=== PATIENT | male | born 1960 | race Caucasian/White ===

== ENCOUNTER → 2016-03-23 | Outpatient (CLI) | payer OTHER ==
--- NOTE | 2016-03-23 14:45 | XR ---
EXAMINATION TYPE: XR chest 2V DATE OF EXAM: 03/23/2016 2:39 PM COMPARISON: 08/23/2015 HISTORY: Shortness of breath TECHNIQUE: Frontal and lateral views of the chest are obtained. FINDINGS: Scattered senescent parenchymal changes noted. Hyperinflation compatible with COPD. No evidence for infiltrate. No evidence for atelectasis. Heart size is stable. Mediastinal structures are stable and grossly unremarkable. No evidence for hilar prominence. Degenerative changes dorsal spine. IMPRESSION: 1. No evidence for acute pulmonary disease.
[2016-03-23 16:12] LABS: EKG EKG PERFORMED
[2016-03-23 16:32] LABS: Appearance,Urine Clear (Clear); Bilirubin,Urine Negative (Negative); Glucose,Urine (UA) Negative (Negative); Ketones,Urine Negative (Negative); Leukocyte Esterase,Urine Negative (Negative); Nitrite,Urine Negative (Negative); Protein,Urine Negative (Negative); Specific Gravity,Urine 1.011 (1.001-1.035); UA Billing (MACRO vs. MICRO) CHEM; Urobilinogen,Urine <2.0 mg/dL (<2.0)
[2016-03-23 16:33] LABS: Basophils % (A) 1 %; CH 30.4; CHCM 34.2; Eosinophils # (A) 0.4 k/uL (0-0.7); Eosinophils % (A) 6 %; HCT 43.2 % (39.0-53.0); Luc # (Auto) 0.07; Luc % (Auto) 1; Lymphocytes # (A) 1.2 k/uL (1.0-4.8); Lymphocytes % (A) 20 %; MCHC 32.4 g/dL (31.0-37.0); MCV 89.4 fL (80.0-100.0); Mean Platelet Volume 8.4; Monocytes # (A) 0.4 k/uL (0-1.0); Monocytes % (A) 7 %; Neutrophils # (A) 3.9 k/uL (1.3-7.7); Neutrophils % (A) 65 %; RBC 4.83 m/uL (4.30-5.90); RDW 13.9 % (11.5-15.5); WBC 6.1 k/uL (3.8-10.6); WBC (Perox) 6.22
[2016-03-23 17:03] LABS: Anion Gap 11 mmol/L; Blood Urea Nitrogen 12 mg/dL (9-20); Calcium 9.6 mg/dL (8.4-10.2); Carbon Dioxide 30 mmol/L (22-30); Chloride 99 mmol/L (98-107); Glucose 93 mg/dL (74-99); Non-African American GFR(MDRD) >60 (>60 ml/min/1.73 sqM); Potassium 3.8 mmol/L (3.5-5.1); Sodium 140 mmol/L (137-145)
[2016-03-23 17:08] LABS: Partial Thromboplastin Time 26.4 sec (22.0-30.0)
== END | disposition home or self-care (01) ==
LOC: RADXRMAIN 14:27
PROVIDERS: ATTEND Orthopaedic Surgery Orthopaedic Surgery of the Spine
DX: Z01.818 Encounter for other preprocedural examination (principal); Z01.812 Encounter for preprocedural laboratory examination; Z01.810 Encounter for preprocedural cardiovascular examination
CPT/HCPCS: 36415; 71020; 80048; 81003; 85025; 85610; 85730; 93005

== ENCOUNTER 2016-03-29 06:03 | Inpatient (IN) | payer OTHER ==
[2016-03-23 16:06] LABS: EKG EKG PERFORMED
[2016-03-27 10:36] VITALS: BMI 32.5
[~2016-03-29 06:03] MED LIST: HYDROmorphone 1 MG/ML 1 ML SYRINGE IVP PRN; LACTATED RINGERS 1,000 ML IV SCH; LIDOCAINE 1% 20 ML VIAL (10MG/ML) FOR IV START INTRADERMA PRN; ONDANSETRON 4 MG/2 ML VIAL IVP ONE; Pre Op ABX Message 1 EACH MISC MISCELLANE ONE; SCOPOLAMINE 1.5MG/72HR PATCH TRANSDERM ONE
[2016-03-29] MEDS ORDERED: LIDOCAINE 1% 20 ML VIAL (10MG/ML) FOR IV START INTRADERMA ONE (06:33)
[2016-03-29] MEDS ORDERED: SUCCINYLCHOLINE CHLORIDE 100 MG/5 ML SYR IV ONE (07:27)
[2016-03-29] MEDS ORDERED: LIDOCAINE 1% INJ 10MG/ML (20 ML MDV) ONE (07:27)
[2016-03-29] MEDS ORDERED: ceFAZolin 1,000 MG VIAL ONE (07:27)
[2016-03-29] MEDS ORDERED: PROPOFOL 10 MG/ML 20 ML VIAL IV ONE (07:27)
[2016-03-29] MEDS ORDERED: MIDAZOLAM 2 MG/2 ML VIAL ONE (07:27)
[2016-03-29] MEDS ORDERED: ePHEDrine 50 MG/ML 1 ML AMP ONE (07:27)
[2016-03-29] MEDS ORDERED: ROCURONIUM BROMIDE 10 MG/ML 10 ML VIAL IV ONE (07:27)
[2016-03-29] MEDS ORDERED: SODIUM CHLORIDE 0.9% 100 ML BAG ONE (07:27)
[2016-03-29] MEDS ORDERED: fentaNYL (PF) 50 MCG/ML 2 ML AMP ONE (07:27)
[2016-03-29] MEDS ORDERED: HYDROmorphone (PF) 1 MG/ML ONE (07:27)
[2016-03-29] MEDS ORDERED: DEXAMETHASONE SOD PHOS (MDV) 100 MG/10 ML VIAL ONE (07:27)
[2016-03-29] MEDS: ceFAZolin 2 GM in SODIUM CHLORIDE 0.9% 100 ML IVPB ONE ×2 (07:43→11:00)
[2016-03-29] MEDS: ceFAZolin 1,000 MG in SODIUM CHLORIDE 0.9% IRRIGATIO 1,000 ML IRRIGATION ONE ×3 (07:45→11:01)
[2016-03-29] MEDS ORDERED: GELATIN SPONGE,ABSORB (LARGE) 1 EACH SPONGE TOPICAL ONE (08:01)
[2016-03-29] MEDS ORDERED: THROMBIN (BOVINE) 5,000 UNIT VIAL TOPICAL ONE (08:02)
[2016-03-29] MEDS ORDERED: LIDOCAINE 0.5%-EPI 1:200,000 50 ML VIAL SQ ONE (08:02)
[2016-03-29] MEDS ORDERED: ONDANSETRON 4 MG/2 ML VIAL IVP PRN (09:23)
[2016-03-29] MEDS ORDERED: HYDROmorphone 1 MG/ML 1 ML SYRINGE IVP PRN ×2 (09:23)
[2016-03-29] MEDS ORDERED: HYDROcodone/APAP 5-325MG 1 EACH TAB PO PRN (09:23)
[2016-03-29] MEDS ORDERED: BENZOCAINE/MENTHOL LOZENG 1 EACH LOZENGE MUCOUS MEM PRN (09:23)
[2016-03-29] MEDS ORDERED: DIAZEPAM 5 MG TAB PO PRN (09:23)
[2016-03-29] MEDS ORDERED: ALPRAZolam 0.25 MG TAB PO PRN (09:25)
[2016-03-29] MEDS ORDERED: PREGABALIN 100 MG CAP PO PRN (09:25)
[2016-03-29] MEDS ORDERED: SODIUM CHLORIDE 0.9% 1,000 ML IV SCH (09:30)
--- NOTE | 2016-03-29 09:30 | P.OP ---
Date of Procedure: 03/29/16 Preoperative Diagnosis: Herniated nucleus pulposis C6 7 Degenerative disc disease C6 7 Cervical stenosis C6 7 Neck pain with upper extremity radiculopathy Postoperative Diagnosis: Same Anesthesia: GETA Pathology: none sent Condition: stable Disposition: PACU Description of Procedure: BRIEF OPERATIVE NOTE Preoperative Diagnosis: Herniated nucleus pulposis C6 7, cervical stenosis C6 7 , degenerative disc disease C6 7, neck pain with upper extremity radiculopathy s Postoperative Diagnosis: Same Procedure: Anterior cervical decompression and fusion C6 7 Placement of interbody graft C6 7 Application of anterior cervical plate C6 7 Surgeon: Dr. Ling Rv Mechanic: Dorian Gibbs is present throughout the entire the case persistence during positioning, dissection, exposure, visualization, and all crucial elements of the case as well as closure. Anesthesia: General anesthesia Estimated blood loss: Approximately 50 mL Complications: None apparent Components implanted: K2M [place] anterior cervical plate system with screws and allograft interbody bone graft Disposition: To recovery room in good stable condition. OPERATIVE INDICATIONS The patient has had long-standing issues in their neck and upper extremities. He has been having worsening his symptoms and was found have significant changes at his cervical spine with herniated nucleus pulposis stenosis and degenerative change all of which correlated well with his symptoms. The patient has been through conservative treatment. He is not having any prolonged benefit despite aggressive conservative treatment. We discussed various treatment options including surgery, and the patient wishes to proceed with surgery We discussed the risk, patient's alternatives and benefits of surgery including but not limited to, risk of bleeding risk of infection, risk of need for further surgery, risk of decreased, loss of motion, muscle function, malunion nonunion, hardware failure, nerve damage, paralysis, heart attack, and . OPERATIVE SUMMARY After discussing all the risks, patient alternatives and benefits at length, the patient elected to proceed with surgical intervention, signed informed consent, and presented for their procedure. The patient was seen and examined in the preoperative holding area and the surgical site was marked. The patient was given antibiotics and brought to the operating room. The patient was positioned on the operating room table in a supine position being careful to pad any bony prominences and pressure points. The patient was sedated and intubated by anesthesia in standard fashion. Once the airway and C- spine were stabilized the patient's arms were padded and tucked at her side, with her shoulders gently taped. The head was placed in a donut pad with the neck in good neutral alignment and position. We were careful to maintain the patient's cervical spine and good neutral alignment and position throughout. The patient was prepped and draped in a normal standard fashion. An appropriate timeout and keystone protocol performed. We were able to proceed with the surgery. The local wound area was infiltrated with local anesthetic. An incision was made transversely approximately 2-1/2 cm over the appropriate levels at C6 7 at C6 7. Dissection was taken down subcutaneously to the level of the platysma which was split in line with its fibers. Dissection was taken with a carotid approach, with the trachea and esophagus medial and the carotid sheath laterally. We dissected down to the anterior surface of the vertebral bodies. Intraoperative x-ray was taken which showed a marker at the appropriate level. With the appropriate level positively confirmed, we were able to proceed with discectomy at the appropriate levels at C6 7. All of the operative levels were exposed appropriately. The patient had all their twitches back, and there was no evidence of recurrent laryngeal issue. The wound was copiously irrigated and suctioned dry as had been done periodically throughout the case. At the appropriate level there is severe degeneration and near complete loss of disc height., I established an annulotomy with an 11 blade scalpel. A discectomy was performed with a combination of pituitary rongeurs, curettes, a high-speed bur, and Kerrison rongeurs. The posterior longitudinal ligament was taken down as were any posterior osteophytes. This gave good central and bilateral foraminal decompression. There is no evidence of any dural tear or leak. The endplates were prepared with a high-speed bur. With the endplates in good parallel position, I was able to size for the appropriate size interbody graft. The wound was irrigated and suctioned dry the graft was prepared and malleted into position. It had good alignment and position with the anterior surface flush with the anterior surface of the vertebral bodies. With the grafts intact, I was able to measure and contour and appropriate sized plate. The plate was positioned at the midline over the appropriate levels of C6 7. Screw holes were established with a hand drill and drill guide. Screws were placed in good alignment and position with excellent bony purchase. They were seated under the locking device. The construct was checked and found to be stable. Intraoperative x-ray was taken which showed good alignment and position of the implants at the appropriate levels. There was no evidence of any dural tear or leak. Good hemostasis was maintained. The wound was copiously irrigated and suctioned dry as had been done periodically throughout the case. The platysma was closed with absorbable suture. The subcutaneous tissue was closed. The subcuticular tissue was closed with absorbable suture. The wound was cleaned and dried and dressed appropriately. A soft cervical collar was placed appropriately. The patient was woken up by anesthesia, extubated, transferred back gently to their hospital bed and brought to the recovery room in good stable condition. The patient will be admitted to the hospital for appropriate postoperative care , medical management and monitoring. We will continue to follow them closely about the postoperative course.
--- NOTE | 2016-03-29 09:54 | XR ---
EXAMINATION TYPE: XR cervical spine 1V DATE OF EXAM: 03/29/2016 9:10 AM COMPARISON: Exam earlier same date HISTORY: Hardware placement disc removal TECHNIQUE: Single crosstable lateral cervical spine FINDINGS: There is limitation in the lower cervical spine. Previous metallic density is not identifie d. The endotracheal tube remains present. There appears to be some faint hardware which may be presen t C6 is not well visualized. IMPRESSION: Limited visualization of posterior procedure cervical spine
--- NOTE | 2016-03-29 10:14 | XR ---
EXAMINATION TYPE: XR cervical spine 1V DATE OF EXAM: 03/29/2016 8:34 AM COMPARISON: NONE HISTORY: Needle placement surgery TECHNIQUE: Single crosstable lateral cervical spine FINDINGS: Metallic needles directed towards the approximate C7 level. This is limited due to patient' s shoulders. Superior endplate of C6 on the lowest reliable level identified. Endotracheal tube is present. IMPRESSION: 1. Limited examination due to patient body habitus. The needle tip appears to be directed towards the approximate C7 level. C6-7 disc space is not well visualized.
[2016-03-29 10:47] VITALS: RESP 20
[2016-03-29 12:37] VITALS: BP 137/79; PULSE 60; TEMP 97
[2016-03-29] MEDS ORDERED: ceFAZolin 2 GM in SODIUM CHLORIDE 0.9% 100 ML IVPB SCH (16:00)
[2016-03-29] MEDS ORDERED: MESALAMINE 400 MG CAPSULE.DR PO SCH (16:00)
[2016-03-29] MEDS ORDERED: ATORVASTATIN 20 MG TAB PO SCH (21:00)
--- NOTE | 2016-03-30 08:38 | P.DS ---
Providers Date of admission: 03/29/16 06:03 Attending physician: Chano Ling Primary care physician: Kofi Bakerhven Hospital Course: The patient presented on the day of admission as per his operative note. He feels his neck and his arms are doing well since his surgery. He is not having pain in his neck and his able to swallow appropriately. Physical Exam The incision site is clean dry and intact. There is no erythema no drainage. There is no purulence no evidence of infection. There is no significant swelling. His neck is soft and supple. There is no active drainage. Abdomen soft and nontender. Chest has good excursion with deep inspiration and expiration. The patient has active and passive range of motion intact at the upper and lower extremities. There is no acute change in neurologic status. He is able to move his upper extremities hands wrist and fingers well. Hospital Course Postoperative day 0 status post anterior cervical discectomy and fusion at C67 for his herniated nucleus pulposis with cervical stenosis and degenerative disc disease with upper extremity radiculopathy. The patient has been making good progress postoperatively. He feels his arms have had improvement already with his surgery. They have completed the prophylactic antibiotics without any signs or symptoms of infection. The patient has been able to advance their diet, and is tolerating diet adequately. The pain was initially controlled with IV medications and is now controlled appropriately with oral medications. The patient has been able to increase their mobilization. The patient has progressed appropriately. I think they are in good stable condition for discharge today. They will be sent home with appropriate prescriptions. I answered their questions to the best of my ability in a language that they can understand and they are agreeable with the plan. They will follow up as directed in approximately 2 weeks or sooner if he is having any problems. Patient Condition at Discharge: Good Plan - Discharge Summary New Discharge Prescriptions: HYDROcodone/APAP 5-325MG [[place] 5-325] 1 tab PO Q6HR PRN #90 tab PRN Reason: Pain Discharge Medication List traMADol HCL [Ultram] 50 mg PO TID PRN 08/23/15 [History] Atorvastatin Calcium [Lipitor] 20 mg PO HS #30 tab 08/24/15 [Rx] ALPRAZolam [Xanax] 0.25 mg PO TID PRN 03/27/16 [History] Atenolol/Chlorthalidone [Atenolol-Chlorthalidone 50-25] 1 tab PO QAM 03/27/16 [ History] Escitalopram Oxalate [Lexapro] 20 mg PO DAILY 03/27/16 [History] Mesalamine [Delzicol] 400 mg PO TID 03/27/16 [History] Pregabalin [Lyrica] 100 mg PO BID PRN 03/27/16 [History] HYDROcodone/APAP 5-325MG [[place] 5-325] 1 tab PO Q6HR PRN #90 tab 03/29/16 [Rx] Follow up Appointment(s)/Referral(s): Chano Ling DO [Doctor of Osteopathic Medicine] - 04/11/16 3:00 pm (With Dorian Logan at Dr. Ling's office) Patient Instructions/Handouts: *Surgery [facility] - ([facility]) Cervical Surgery Discharge Instructions, Hydrocodone/Acetaminophen (By mouth) Activity/Diet/Wound Care/Special Instructions: *Keep site clean. *May shower with waterproof dressing intact but do not soak in a tub. *Keep dressing intact through Sunday, and then may remove dressing but leave Steri-Strips intact and allow them to fray off on their own. *After Sunday, patient may shower with Steri-Strips exposed, but do not soak in a tub. -Avoid heavy or rigorous activity. -No overhead work. -No lifting greater than 10 pounds. -May ambulate to tolerance Discharge Disposition: HOME SELF-CARE
[2016-03-30] MEDS ORDERED: ESCITALOPRAM 20 MG TAB PO SCH (09:00)
[2016-03-30] MEDS ORDERED: CHLORTHALIDONE 25 MG TAB PO SCH (09:00)
[2016-03-30] MEDS ORDERED: ATENOLOL 50 MG TAB PO SCH (09:00)
== END 2016-03-29 14:00 | disposition home or self-care (01) | DRG 473 ==
LOC: 2ORMAIN 06:03 → 5ONC 09:48
PROVIDERS: ADMIT Orthopaedic Surgery Orthopaedic Surgery of the Spine; ATTEND Orthopaedic Surgery Orthopaedic Surgery of the Spine
PROC: 0RB30ZZ Excision of Cervical Vertebral Disc, Open Approach (ICD-10-PCS; 2016-03-29)
PROC: 0RG10K0 Fusion of Cervical Vertebral Joint with Nonautologous Tissue Substitute, Anterior Approach, Anterior Column, Open Approach (ICD-10-PCS; principal; 2016-03-29 07:30)
DX: M50.123 Cervical disc disorder at C6-C7 level with radiculopathy (principal); I10 Essential (primary) hypertension; M48.02 Spinal stenosis, cervical region; E78.5 Hyperlipidemia, unspecified; H91.90 Unspecified hearing loss, unspecified ear; R26.81 Unsteadiness on feet; F32.9 Major depressive disorder, single episode, unspecified; F41.9 Anxiety disorder, unspecified; Z79.899 Other long term (current) drug therapy
CPT/HCPCS: 72020; 80048; 86850; 86900; 86901; 93005

== ENCOUNTER → 2016-06-21 | Day surgery (SDC) | payer OTHER ==
[2016-06-19 10:17] VITALS: BMI 31.1
[~2016-06-21] MED LIST changes: -HYDROmorphone 1 MG/ML 1 ML SYRINGE IVP PRN; +LIDOCAINE 1% 20 ML VIAL (10MG/ML) FOR IV START INTRADERMA ONE; -LIDOCAINE 1% 20 ML VIAL (10MG/ML) FOR IV START INTRADERMA PRN; +LIDOCAINE 1% INJ 10MG/ML (20 ML MDV) ONE; -ONDANSETRON 4 MG/2 ML VIAL IVP ONE; +PROPOFOL 10 MG/ML 20 ML VIAL IV ONE; -Pre Op ABX Message 1 EACH MISC MISCELLANE ONE; -SCOPOLAMINE 1.5MG/72HR PATCH TRANSDERM ONE; +fentaNYL (PF) 50 MCG/ML 2 ML AMP IV ONE
[2016-06-21 09:32] VITALS: TEMP 98.1
--- NOTE | 2016-06-21 09:56 | P.GSHP ---
History of Present Illness H&P Date: 06/21/16 Chief Complaint: Screening colonoscopy Is a 55-year-old male who presents today for colonoscopy. Patient history of ulcerative colitis. He's had some rectal bleeding. Past Medical History Past Medical History: Hyperlipidemia, Hypertension Additional Past Medical History / Comment(s): ulcerative colitis, History of Any Multi-Drug Resistant Organisms: MRSA Date of last positivie culture/infection: AUGUST 2007 MDRO Source:: right hand Past Surgical History: No Surgical Hx Reported Additional Past Surgical History / Comment(s): 03/29/16 Anterior cervical decompression fusion C6-7, rt wrist surgery Past Anesthesia/Blood Transfusion Reactions: No Reported Reaction Past Psychological History: Anxiety, Depression Additional Psychological History / Comment(s): Pt resides with his adult daughter. He uses a cane prn. He drives. Smoking Status: Current every day smoker Past Alcohol Use History: Occasional Additional Past Alcohol Use History / Comment(s): Pt states he started smoking as a teen and quit once from 2023-8000. He smokes 4-5 cigarettes currently. Past Drug Use History: Marijuana Additional Drug Use History / Comment(s): Pt states he uses marijuana on a daily basis for pain and appetite. - Past Family History Father Family Medical History: Osteoarthritis (OA) Additional Family Medical History / Comment(s): Father is 85 yrs old. Mother Family Medical History: Congestive Heart Failure (CHF), Diabetes Mellitus Additional Family Medical History / Comment(s): Mother has a pacemaker. Medications and Allergies Home Medications Medication Instructions Recorded Confirmed Type ALPRAZolam [Xanax] 0.25 mg PO TID PRN 03/27/16 06/21/16 History Atenolol/Chlorthalidone 1 tab PO QAM 03/27/16 06/21/16 History [Atenolol-Chlorthalidone 50-25] Escitalopram Oxalate [Lexapro] 20 mg PO DAILY 03/27/16 06/21/16 History Mesalamine [Delzicol] 400 mg PO TID 03/27/16 06/21/16 History Pregabalin [Lyrica] 100 mg PO BID PRN 03/27/16 06/21/16 History HYDROcodone/APAP 5-325MG [[place] 1 tab PO BID 06/19/16 06/21/16 History 5-325] Allergies Allergy/AdvReac Type Severity Reaction Status Date / Time No Known Allergies Allergy Verified 06/21/16 09:21 Surgical - Exam Vital Signs Temp Pulse BP Pulse Ox 98.1 F 57 L 126/79 97 06/21/16 09:27 06/21/16 09:27 06/21/16 09:27 06/21/16 09:27 - General well developed, no distress - Eyes PERRL - ENT normal pinna - Neck no masses - Respiratory normal expansion - Cardiovascular Rhythm: regular - Abdomen Abdomen: soft, non tender Assessment and Plan Plan: 55-year-old male with history of ulcerative colitis. We'll perform colonoscopy
--- NOTE | 2016-06-21 10:14 | P.OP ---
Date of Procedure: 06/21/16 Preoperative Diagnosis: Ulcerative colitis Postoperative Diagnosis: Right colon polyp Ulcerative colitis Procedure(s) Performed: Colonoscopy Anesthesia: MAC Surgeon: Edilson Kirkland Pathology: other (Right colon biopsy) Condition: stable Disposition: PACU Description of Procedure: Patient's placed on the operative table in the lateral position. He received IV sedation. Digital rectal exam was performed which revealed no abnormalities. The prostate was symmetric without nodules. The flexible colonoscope was then placed patient anus passed throughout the entire colon. There was cobblestoning of the mucosa. In the proximal right colon a biopsies was performed with a forcep. Scope summer back and the distal right colon a platelet the polyp was seen this removed with snare. Mainer of the transverse colon descending colon and sigmoid colon had extensive cobblestoning of the mucosa. There is no active bleeding. The scope was then brought back the rectum appeared minimally inflamed. A biopsies performed. The scope was withdrawn for patient.
[2016-06-21 10:25] VITALS: RESP 18
[2016-06-21 10:41] VITALS: BP 124/83; PULSE 82
== END ==
LOC: ORWHC2ENDO 08:42
PROVIDERS: ATTEND Surgery
DX: K51.90 Ulcerative colitis, unspecified, without complications (principal); K63.5 Polyp of colon; E78.5 Hyperlipidemia, unspecified; I10 Essential (primary) hypertension; G89.29 Other chronic pain; F41.9 Anxiety disorder, unspecified; F32.9 Major depressive disorder, single episode, unspecified; F39 Unspecified mood [affective] disorder; F17.210 Nicotine dependence, cigarettes, uncomplicated; Z79.891 Long term (current) use of opiate analgesic; Z79.899 Other long term (current) drug therapy; Z86.14 Personal history of Methicillin resistant Staphylococcus aureus infection
CPT/HCPCS: 88305; 45380; 45385; J2001; J3010; J2704

== ENCOUNTER → 2016-07-31 | Outpatient (CLI) | payer OTHER ==
[2016-07-31 11:29] LABS: Blood Urea Nitrogen 13 mg/dL (9-20); Non-African American GFR(MDRD) >60 (>60 ml/min/1.73 sqM)
== END | disposition home or self-care (01) ==
LOC: LABWHC1 10:35
PROVIDERS: ATTEND Orthopaedic Surgery Orthopaedic Surgery of the Spine
DX: N28.9 Disorder of kidney and ureter, unspecified (principal)
CPT/HCPCS: 36415; 82565; 84520

== ENCOUNTER → 2016-09-30 | Outpatient (CLI) | payer OTHER ==
--- NOTE | 2016-09-30 19:33 | MR ---
EXAMINATION TYPE: MR brain wo con DATE OF EXAM: 09/30/2016 COMPARISON: NONE HISTORY: Headache, dizziness, and facial numbness all per order. Additional symptoms of spasm and preet rred vision per patient. TECHNIQUE: Multiplanar, multisequence imaging of the brain and brainstem is performed without IV cont rast. FINDINGS: Exam is suboptimal as is degraded by patient motion as patient continue to fall sleep per technologist. Diffusion weighted images demonstrate no evidence of a recent infarct or other diffusion abnormality. There is no extraaxial fluid collection or significant white matter signal abnormality. The ventricu lar system and cisternal spaces are normal in size and appearance. The brain volume is age appropria te. Midline structures demonstrate normal morphology. The craniocervical junction appears within normal limits. Normal vascular flow voids are present. There is mild mucosal thickening involving anterior e thmoid sinuses bilaterally otherwise paranasal sinuses are clear. The globes are intact bilaterally. No suspicious fluid signal bilateral mastoid air cells is present. IMPRESSION: No significant finding is seen to account for patient's symptoms.
== END | disposition home or self-care (01) ==
LOC: RADMRIMAIN 14:36
PROVIDERS: ATTEND Physician Assistant
DX: R51 Headache (principal); R42 Dizziness and giddiness; R20.8 Other disturbances of skin sensation
CPT/HCPCS: 70551

== ENCOUNTER → 2016-10-11 | Outpatient (CLI) | payer OTHER ==
--- NOTE | 2016-10-12 07:08 | US ---
EXAMINATION TYPE: US carotid duplex BILAT DATE OF EXAM: 10/11/2016 COMPARISON: NONE CLINICAL HISTORY: Postural, Dizziness and Numbness L R42,R20.8. Dizziness, left facial numbness, post ural EXAM MEASUREMENTS: RIGHT: Peak Systolic Velocity (PSV) cm/sec ----- Right CCA: 120.0 ----- Right ICA: 122.1 ----- Right ECA: 130.2 ICA/CCA ratio: 1.0 RIGHT: End Diastole cm/sec ----- Right CCA: 35.7 ----- Right ICA: 25.2 ----- Right ECA: 26.7 LEFT: Peak Systolic Velocity (PSV) cm/sec ----- Left CCA: 96.0 ----- Left ICA: 95.2 ----- Left ECA: 109.5 ICA/CCA ratio: 1.0 LEFT: End Diastole cm/sec ----- Left CCA: 29.9 ----- Left ICA: 31.4 ----- Left ECA: 20.4 VERTEBRALS (direction of flow): Right Vertebral: Antegrade Left Vertebral: Antegrade Mild plaque bilateral bifurcations. No evidence of significant stenosis. Grayscale images show mild eccentric plaque at bilateral carotid bulbs. Velocity measurements are sli ghtly prominent in bilateral common carotid arteries raising concern for underlying hypertension. No significant increase velocity is seen in either internal carotid artery. IMPRESSION: Mild plaque bilaterally without hemodynamically significant stenosis seen in either inte rnal carotid artery.
== END | disposition home or self-care (01) ==
LOC: RADUSWWP 17:11
PROVIDERS: ATTEND Psychiatry & Neurology Neurology
DX: I65.23 Occlusion and stenosis of bilateral carotid arteries (principal)
CPT/HCPCS: 93880